=== PATIENT | female | born 1975 | race African-American/Black ===

== ENCOUNTER 2019-11-21 18:44 | Emergency (ER) | payer MEDICAID ==
[~2019-11-21] VITALS: Ht 152.4 cm; Wt 100.0 kg
[2019-11-21 18:46] VITALS: BP 139/83
[2019-11-21] MEDS ORDERED: MAGNESIUM/ALUMINUM HYDROXIDE/SIMETHICONE 30ML UDC PO STA (19:48)
[2019-11-21] MEDS ORDERED: VISCOUS LIDOCAINE 2% 15 ML UDC PO STA (19:48)
[2019-11-21 20:30] LABS: CLARITY URINE CLEAR (CLEAR); COLOR URINE YELLOW (YELLOW); KETONES URINE NEGATIVE (NEGATIVE); LEUKOCYTE ESTERASE URINE NEGATIVE (NEGATIVE); NITRITE URINE NEGATIVE (NEGATIVE); OCCULT BLOOD URINE NEGATIVE (NEGATIVE); PROTEIN URINE NEGATIVE (NEGATIVE); UROBILINOGEN URINE 0.2 E.U./dL (0.2-1.0)
[2019-11-21] MEDS ORDERED: ONDANSETRON 4MG ODT PO ONE (21:30)
== END 2019-11-21 22:12 | disposition home or self-care (01) ==
LOC: ER 18:44
DX: K21.9 Gastro-esophageal reflux disease without esophagitis (principal); M54.12 Radiculopathy, cervical region; F41.9 Anxiety disorder, unspecified
CPT/HCPCS: 81003; 81025; 99284; Q0162

== ENCOUNTER 2020-03-06 15:04 | Emergency (ER) | payer MEDICAID, OTHER ==
[~2020-03-06] VITALS: Ht 162.6 cm; Wt 96.0 kg
[2020-03-06] MEDS ORDERED: KETOROLAC 60MG/2ML VIAL IM ONE (16:15)
[2020-03-06 17:38] VITALS: BP 122/78
== END 2020-03-06 17:37 | disposition home or self-care (01) ==
LOC: ER 15:04
DX: S43.492A Other sprain of left shoulder joint, initial encounter (principal); V29.9XXA Motorcycle rider (driver) (passenger) injured in unspecified traffic accident, initial encounter; Y93.89 Activity, other specified; Y92.488 Other paved roadways as the place of occurrence of the external cause
CPT/HCPCS: 73030; 93005; 96372; 99283; J1885

== ENCOUNTER 2020-05-12 11:40 | Emergency (ER) | payer OTHER ==
[~2020-05-12] VITALS: Ht 162.6 cm; Wt 81.0 kg
[2020-05-12] MEDS ORDERED: ACETAMINOPHEN 500MG TABLET PO ONE (12:45)
[2020-05-12] MEDS ORDERED: ACET-2708 MT (13:17)
[2020-05-12 13:34] VITALS: BP 122/65
== END 2020-05-12 13:28 | disposition home or self-care (01) ==
LOC: ER 11:40
DX: S09.8XXA Other specified injuries of head, initial encounter (principal); W22.8XXA Striking against or struck by other objects, initial encounter; Y93.01 Activity, walking, marching and hiking; Y92.89 Other specified places as the place of occurrence of the external cause
CPT/HCPCS: 99282

== ENCOUNTER 2020-09-08 23:53 | Emergency (ER) | payer OTHER, MEDICAID ==
[~2020-09-08] VITALS: Ht 162.6 cm; Wt 88.0 kg
[~2020-09-08 23:53] MED LIST: ACET-2708 MT; NAPR-681 MT
[2020-09-09] MEDS ORDERED: IBUP-2029 MT (03:20)
[2020-09-09] MEDS ORDERED: KETOROLAC 60MG/2ML VIAL IM ONE (03:30)
[2020-09-09 04:41] VITALS: BP 125/65
== END 2020-09-09 04:43 | disposition home or self-care (01) ==
LOC: ER 23:53
DX: I87.8 Other specified disorders of veins (principal); R20.0 Anesthesia of skin
CPT/HCPCS: 29125; 81025; 96372; 99283; J1885

== ENCOUNTER 2021-01-07 17:45 | Emergency (ER) | payer MEDICAID, OTHER ==
[~2021-01-07] VITALS: Ht 162.6 cm; Wt 68.0 kg
[~2021-01-07 17:45] MED LIST changes: +IBUP-2029 MT
[2021-01-07 18:09] VITALS: BP 134/104
== END 2021-01-07 22:00 | disposition home or self-care (01) ==
LOC: ER 17:45
DX: Z04.89 Encounter for examination and observation for other specified reasons (principal); F12.988 Cannabis use, unspecified with other cannabis-induced disorder
CPT/HCPCS: 81025; 99284; Z7610

== ENCOUNTER 2021-01-20 13:55 | Emergency (ER) | payer OTHER ==
[~2021-01-20] VITALS: Ht 162.6 cm; Wt 77.0 kg
[2021-01-20 14:01] VITALS: BP 117/57
[2021-01-20 16:14] LABS: HEMATOCRIT. 27.8 % (36.0-48.0); HEMOGLOBIN. 8.6 g/dL (12.0-16.0); MEAN CORPUSCULAR HEMOGLOBIN 20.4 pg (28.0-32.0); MEAN CORPUSCULAR VOLUME 66.2 fL (81.0-99.0); MEAN PLATELET VOLUME 8.5 fl (7.4-10.4); PLATELET 245 x1000/uL (130-400); RED BLOOD CELL COUNT 4.21 mill/uL (4.2-5.4); RED CELL DISTRIBUTION WIDTH 23.6 % (11.6-14.6)
[2021-01-20 16:26] LABS: CHLORIDE 107 mEq/L (98-107)
[2021-01-20 17:08] LABS: PLATELET ESTIMATE NORMAL
[2021-01-20] MEDS ORDERED: ACETAMINOPHEN 325MG TABLET PO STA (21:15)
[2021-01-20] MEDS ORDERED: MAGNESIUM/ALUMINUM HYDROXIDE/SIMETHICONE 30ML UDC PO ONE (21:15)
[2021-01-20] MEDS ORDERED: ONDANSETRON 4MG ODT PO STA (21:15)
[2021-01-20] MEDS ORDERED: FAMOTIDINE 20MG TABLET PO ONE (21:15)
[2021-01-20] MEDS ORDERED: VISCOUS LIDOCAINE 2% 15 ML UDC PO ONE (21:15)
[2021-01-20 22:00] LABS: CLARITY URINE CLEAR (CLEAR); COLOR URINE YELLOW (YELLOW); KETONES URINE NEGATIVE (NEGATIVE); LEUKOCYTE ESTERASE URINE NEGATIVE (NEGATIVE); NITRITE URINE NEGATIVE (NEGATIVE); OCCULT BLOOD URINE NEGATIVE (NEGATIVE); PROTEIN URINE NEGATIVE (NEGATIVE); SPECIFIC GRAVITY URINE 1.014 (1.005-1.030); UROBILINOGEN URINE 0.2 E.U./dL (0.2-1.0)
[2021-01-20] MEDS ORDERED: OMEP20CA14 MT (23:17)
[2021-01-20] MEDS ORDERED: FAMO-135 PO (23:17)
== END 2021-01-20 23:36 | disposition home or self-care (01) ==
LOC: ER 13:55
DX: R10.13 Epigastric pain (principal); K21.9 Gastro-esophageal reflux disease without esophagitis
CPT/HCPCS: 36415; 71045; 80053; 81003; 83690; 85025; 93005; 99285; Q0162